=== PATIENT | male | born 1955 | race Caucasian/White ===

== ENCOUNTER 2016-12-19 15:40 | Emergency (ER) | payer OTHER ==
[~2016-12-19] VITALS: Ht 172.7 cm; Wt 127.0 kg
[2016-12-19] MEDS ORDERED: BROMFED DM COU118 ML PO (16:12)
[2016-12-19] MEDS ORDERED: FLONASE 50 MCG16 GM (16:12)
--- NOTE | 2016-12-19 16:12 | Urgent Treatment Center Report ---
History of Present Issue Date/Time Seen by Provider 12/19/16 1105 Visit Reason Pt arrived:Walked Presenting Problem:PT ADVISES SHE WAS DX WITH BRONCHITIS 2 WEEKS AGO AT [facility] AND HAS SINCE, NOT FELT ANY BETTER Location if Accident: Onset of symptoms date/time:/ or onset unknown for:MEDICAL HX UNKNOWN Have you (or family members/close friends) recently traveled outside the [place]? N If Yes, where/when: Have you had exposure to infectious disease within the past month? TB? Other? Specify: Here w/ significant other c/o cough. Started yesterday after mowing. "First sneezing, then runny nose and soon after, this cough". Productive at times, clear sputum and clear nasal drainage. Denies fevers, aches, chills. No wheezing. Occasionally feels SOA "when I cough over and over and over". Robitussin has helped "some" but hasn't taken or tried anything else. No known sick contacts. Seen for similiar symptoms 2 weeks ago at [facility]. Dx bronchitis at that time. Treated w/ tessalon perles, steroid injection, inhaler and thinks steroid pills. Seemed to feel better until yesterday. Source patient, family Exam Limitations no limitations ALLERGIES Coded Allergies: No Known Allergies (12/19/16) History Medical History General CAD? No Angina: No [place]: No Hypertension? No Hyperlipidemia? No CHF? No DVT? No PE? No COPD? No Asthma? No Anemia? No GERD? No Gastric ulcers? No GI Bleed? No Hernia? No Thyroid Problems? No Hypothyroidism? No CVA? No Seizures? No Diabetes? No Renal Insuffiency? No UTI? No Stones? No BPH? No GB Disease: No Nephritic Syndrome? No Asplenia? No Hepatitis? No Sickle Cell Disease? No Arthritis? No Migraines? No Cataracts? No Glaucoma? No MRSA? No HIV? No TB? No Anxiety? No Depression? No Cancer? No More? No Immunization HX DT/Tetanus Unknown Surgical Hx Previous Surgery?Y GALLBLADDER APPENDECTOMY Social History Smoking Hx Smoker: Never Smoker Tobacco: No Alcohol Alcohol: No Review of Systems All Other Systems Reviewed and Negative Constitutional see HPI Eyes see HPI, denies pain, denies vision change ENT see HPI, nose congestion. denies: ear pain, throat pain, throat swelling. Respiratory see HPI Cardiovascular denies chest pain Gastrointestinal denies no symptoms reported Psychiatric/Neurological denies headache Physical Exam Vital Signs Vital Signs Date Time Temp Pulse Resp B/P Pulse O2 O2 Flow FiO2 Ox Delivery Rate 12/19 1556 98.1 89 20 151/95 98 General Appearance no apparent distress (except frequent cough), obese Eye Exam - bilateral eye normal exam (x/ watery) Ear, Nose, Throat hearing grossly normal, normal pharynx (x/ clear PND and cobblestoning), nasal congestion, clear rhinorrhea, normal elle EACs w/ pearly cortés TMs, fluid present, TMs flat Neck non-tender, supple Respiratory Status Yes: trachea midline, chest symmetrical, non productive cough. No: respiratory distress, use of accessory muscles, pain on inspiration, pain on expiration. Lung Sounds anterior: lungs clear. posterior: lungs clear. bilateral: lungs clear. Cardiovascular regular rate/rhythm, no peripheral edema, no murmur Neurologic alert Skin normal color, warm/dry Lymphatic no adenopathy (anterior cervical) Medical Decision Making LABS/Meds/Orders Pt receiving controlled substance in ED? No Departure Departure Time of Disposition 1608 Disposition DC Home or Self Care(routine) Clinical Impression Primary Impression: Allergic rhinitis Qualifiers: Allergic rhinitis trigger: unspecified Allergic rhinitis seasonality: seasonal Qualified Code: J30.2 - Other seasonal allergic rhinitis Secondary Impressions: Cough Condition STABLE Referrals NO REFERRAL Primary Care provider, [facility], [facility] or ER IMMEDIATELY for new or worsening symptoms OR no noticeable improvement over the next 48-72 hours. 911 for difficulty breathing or swallowing. Patient Instructions DI for Allergic Rhinitis, DI for Cough -- Adult Additional Instructions * Monitor Temp. Tylenol every 4 hours as needed and/or ibuprofen every 6 hours as needed (as long as your primary care doctor has told you that it is ok to take both) for fever/aches/pain. ER if fever no less than 101 despite tylenol and ibuprofen * Encourage fluids, water, gatorade, powerade, pedialyte if /toddler/child * sleep elevated * humidifier/vaporizer * flonase 2 sprays each nostril daily but may take 2-3 days to notice improvement with it. Once symptoms resolve, back down to 1 spray each nostril x 1 week and if still no symptoms, you can try stopping flonase. If symptoms return, resume at 1 spray each nostril daily. * Bromfed may cause drowsiness. Know how it effects you (or your child) before driving, caring for small children, or sending your child to school. No claritin necessary while taking bromfed 3-4x/day but once you back off cough medication, start daily claritin Discharge Counseling Counseled pt/family regarding diagnosis, medications/RX, home care, follow up needs Prescriptions Current Visit Scripts Fluticasone Propionate (Flonase 50 Mcg Nasal [place]) 2 SPRAY NA DAILY #1 BOT D-METHORPHAN HB/P-EPD HCL/BPM (Bromfed Dm Cough Syrup) 10 ML PO QIDP PRN cough #240 ML at 1614
--- NOTE | 2016-12-19 16:12 | Urgent Treatment Center Report ---
History of Present Issue Date/Time Seen by Provider 12/19/16 6085 Visit Reason Pt arrived:Walked Presenting Problem:PT ADVISES SHE WAS DX WITH BRONCHITIS 2 WEEKS AGO AT [facility] AND HAS SINCE, NOT FELT ANY BETTER Location if Accident: Onset of symptoms date/time:/ or onset unknown for:MEDICAL HX UNKNOWN Have you (or family members/close friends) recently traveled outside the [place]? N If Yes, where/when: Have you had exposure to infectious disease within the past month? TB? Other? Specify: Here w/ significant other c/o cough. Started yesterday after mowing. "First sneezing, then runny nose and soon after, this cough". Productive at times, clear sputum and clear nasal drainage. Denies fevers, aches, chills. No wheezing. Occasionally feels SOA "when I cough over and over and over". Robitussin has helped "some" but hasn't taken or tried anything else. No known sick contacts. Seen for similiar symptoms 2 weeks ago at [facility]. Dx bronchitis at that time. Treated w/ tessalon perles, steroid injection, inhaler and thinks steroid pills. Seemed to feel better until yesterday. Source patient, family Exam Limitations no limitations ALLERGIES Coded Allergies: No Known Allergies (12/19/16) History Medical History General CAD? No Angina: No [place]: No Hypertension? No Hyperlipidemia? No CHF? No DVT? No PE? No COPD? No Asthma? No Anemia? No GERD? No Gastric ulcers? No GI Bleed? No Hernia? No Thyroid Problems? No Hypothyroidism? No CVA? No Seizures? No Diabetes? No Renal Insuffiency? No UTI? No Stones? No BPH? No GB Disease: No Nephritic Syndrome? No Asplenia? No Hepatitis? No Sickle Cell Disease? No Arthritis? No Migraines? No Cataracts? No Glaucoma? No MRSA? No HIV? No TB? No Anxiety? No Depression? No Cancer? No More? No Immunization HX DT/Tetanus Unknown Surgical Hx Previous Surgery?Y GALLBLADDER APPENDECTOMY Social History Smoking Hx Smoker: Never Smoker Tobacco: No Alcohol Alcohol: No Review of Systems All Other Systems Reviewed and Negative Constitutional see HPI Eyes see HPI, denies pain, denies vision change ENT see HPI, nose congestion. denies: ear pain, throat pain, throat swelling. Respiratory see HPI Cardiovascular denies chest pain Gastrointestinal denies no symptoms reported Psychiatric/Neurological denies headache Physical Exam Vital Signs Vital Signs Date Time Temp Pulse Resp B/P Pulse O2 O2 Flow FiO2 Ox Delivery Rate 12/19 1556 98.1 89 20 151/95 98 General Appearance no apparent distress (except frequent cough), obese Eye Exam - bilateral eye normal exam (x/ watery) Ear, Nose, Throat hearing grossly normal, normal pharynx (x/ clear PND and cobblestoning), nasal congestion, clear rhinorrhea, normal elle EACs w/ pearly cortés TMs, fluid present, TMs flat Neck non-tender, supple Respiratory Status Yes: trachea midline, chest symmetrical, non productive cough. No: respiratory distress, use of accessory muscles, pain on inspiration, pain on expiration. Lung Sounds anterior: lungs clear. posterior: lungs clear. bilateral: lungs clear. Cardiovascular regular rate/rhythm, no peripheral edema, no murmur Neurologic alert Skin normal color, warm/dry Lymphatic no adenopathy (anterior cervical) Medical Decision Making LABS/Meds/Orders Pt receiving controlled substance in ED? No Departure Departure Time of Disposition 1608 Disposition DC Home or Self Care(routine) Clinical Impression Primary Impression: Allergic rhinitis Qualifiers: Allergic rhinitis trigger: unspecified Allergic rhinitis seasonality: seasonal Qualified Code: J30.2 - Other seasonal allergic rhinitis Secondary Impressions: Cough Condition STABLE Referrals NO REFERRAL Primary Care provider, [facility], [facility] or ER IMMEDIATELY for new or worsening symptoms OR no noticeable improvement over the next 48-72 hours. 911 for difficulty breathing or swallowing. Patient Instructions DI for Allergic Rhinitis, DI for Cough -- Adult Additional Instructions * Monitor Temp. Tylenol every 4 hours as needed and/or ibuprofen every 6 hours as needed (as long as your primary care doctor has told you that it is ok to take both) for fever/aches/pain. ER if fever no less than 101 despite tylenol and ibuprofen * Encourage fluids, water, gatorade, powerade, pedialyte if /toddler/child * sleep elevated * humidifier/vaporizer * flonase 2 sprays each nostril daily but may take 2-3 days to notice improvement with it. Once symptoms resolve, back down to 1 spray each nostril x 1 week and if still no symptoms, you can try stopping flonase. If symptoms return, resume at 1 spray each nostril daily. * Bromfed may cause drowsiness. Know how it effects you (or your child) before driving, caring for small children, or sending your child to school. No claritin necessary while taking bromfed 3-4x/day but once you back off cough medication, start daily claritin Discharge Counseling Counseled pt/family regarding diagnosis, medications/RX, home care, follow up needs Prescriptions Current Visit Scripts Fluticasone Propionate (Flonase 50 Mcg Nasal [place]) 2 SPRAY NA DAILY #1 BOT D-METHORPHAN HB/P-EPD HCL/BPM (Bromfed Dm Cough Syrup) 10 ML PO QIDP PRN cough #240 ML at 1614
[2016-12-19 16:13] VITALS: BP 151/95
[2016-12-20] MEDS ORDERED: VENTOLIN H0.09 MG/Ac IH (04:29)
[2016-12-20] MEDS ORDERED: KEFLEX 500MG.500 MG PO (07:03)
[2016-12-20] MEDS ORDERED: ZITHROMAX Z PA250 MG PO (07:03)
== END 2016-12-19 16:15 | disposition home or self-care (01) ==
LOC: UTC 15:40
DX: J30.2 Other seasonal allergic rhinitis (principal); R05 Cough

== ENCOUNTER 2016-12-20 04:14 | Emergency (ER) | payer OTHER ==
[~2016-12-20] VITALS: Ht 172.7 cm; Wt 127.0 kg
[~2016-12-20 04:14] MED LIST: BROMFED DM COU118 ML PO; FLONASE 50 MCG16 GM
[2016-12-20] MEDS ORDERED: VENTOLIN H0.09 MG/Ac IH (04:29)
[2016-12-20 05:02] LABS: HEMOGLOBIN 14.1 g/dL (14.1-18.0)
[2016-12-20 05:03] LABS: LYMPH % 11.3 % (10-50)
[2016-12-20 05:04] LABS: LYMPH # 1.2 K/mm3 (0.7-4.5)
[2016-12-20 05:18] LABS: BUN 16 mg/dL (7-18); GFR (ESTIMATED) 76 ML/MIN (>60)
--- NOTE | 2016-12-20 06:05 | RADIOLOGY REPORT PS360 ---
CHEST(2 VIEWS-NOT PORTABLE) HISTORY: cough ORDERING PHYSICIAN: Gato Jarvis MD PATIENT AGE: 61 years COMPARISON: None available FINDINGS: The cardiomediastinal silhouette and pulmonary vascularity are within normal limits. Slight increased markings right middle lobe suspicious for atelectasis or infiltrate versus vascular crowding. The remaining lungs are clear... No acute bony abnormalities. IMPRESSION: Right middle lobe infiltrate
--- NOTE | 2016-12-20 06:25 | Emergency Room Report ---
History of Present Illness Time Seen by 0416 Presenting Problem in Triage Pt arrived:Walked Presenting Problem:PT C/O CHEST TIGHTNESS AND COUGH X 3 DAYS. PT WAS SEEN YESTERDAY AT [facility] AND WAS TOLD HE "HAD ALLERGIES" AND TWO WEEKS PRIOR PT WAS SEEN AT CLINIC AT [facility], SENT HOME WITH PRESCRIPTIONS FOR BRONCHITIS. PT RPTS CLEAR SPUTUM. PT RPTS HE DID COMPLETE HIS MEDS FOR BRONCHITIS. 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 N Clinical Suspician of Infection? N Mental Status: 1 - Regular (Normal Baseline) Sepsis Risk:Low Sepsis Risk Have you (or family members/close friends) recently traveled outside the [place]? N If Yes, where/when: Have you had exposure to infectious disease within the past month? N TB? Other? Specify: Source patient, RN notes reviewed, family, old records Exam Limitations no limitations Comment occ prod cough with recent visits to [facility] - Cardiac Chest Pain Chest pain indicative of cardiac No Timing/Duration this morning Severity moderate ALLERGIES Coded Allergies: No Known Allergies (12/19/16) Home Medications Active Scripts Fluticasone Propionate (Flonase 50 Mcg Nasal [place]) 2 SPRAY NA DAILY #1 BOT Prov: 12/19/16 D-METHORPHAN HB/P-EPD HCL/BPM (Bromfed Dm Cough Syrup) 10 ML PO QIDP PRN cough #240 ML Prov: 12/19/16 Reported Medications Albuterol Sulfate (Ventolin Hfa) 0.09 MG IH PRN PRN ASTHMA #18 History Medical History General CAD? No Angina: No [place]: No Hypertension? No Hyperlipidemia? No CHF? No DVT? No PE? No COPD? No Asthma? No Anemia? No GERD? No Gastric ulcers? No GI Bleed? No Hernia? No Thyroid Problems? No Hypothyroidism? No CVA? No Seizures? No Diabetes? No Renal Insuffiency? No End Stage Renal Disease? No UTI? No Stones? No BPH? No GB Disease: No Nephritic Syndrome? No Asplenia? No Hepatitis? No Sickle Cell Disease? No Arthritis? No Migraines? No Cataracts? No Glaucoma? No MRSA? No HIV? No TB? No Anxiety? No Depression? No Cancer? No More? No Immunization Hx DT/Tetanus Unknown Surgical Hx Previous Surgery?Y GALLBLADDER APPENDECTOMY Social History Smoking Hx Smoker: Former Smoker Tobacco: No Are you/the child exposed to second-hand smoke: No Alcohol Alcohol: No Drugs none Review of Systems All Other Systems Reviewed and Negative Constitutional denies fever Eyes denies drainage ENT denies: ear discharge, epistaxis, throat pain. Respiratory see HPI, cough, shortness of breath, wheezing Cardiovascular denies chest pain, denies palpitations, denies syncope Gastrointestinal denies abdominal pain, denies diarrhea, denies vomiting Genitourinary denies: dysuria, frequency, hesitancy, hematuria. Musculoskeletal denies back pain, denies joint pain, denies joint swelling, denies neck pain Skin denies rash Psychiatric/Neurological denies headache, denies seizure Physical Exam Vital Signs Vital Signs Date Time Temp Pulse Resp B/P Pulse O2 O2 Flow FiO2 Ox Delivery Rate 12/20 0636 82 20 164/100 98 12/20 0600 97.7 78 18 168/88 94 12/20 0530 97.7 81 20 174/87 94 12/20 0432 20 94 12/20 0421 97.7 89 20 162/95 94 - WBC >12,000 or <4,000 or 10% bands? 2 or more SIRS Criteria Met? B/P:164/100 MAP:117 Creatinine >2.0? UA output<0.5ml/kg/hr for 2 hrs? Platelet count >100,000? Lactate >2.0mmol/1? INR >1.2 or PTT > than 60 sec? Evidence of Organ Dysfunction? Provider documented clinical suspician of infection? N Sepsis Criteria Count: 1 Sepsis Risk: Low Sepsis Risk General Appearance no apparent distress Eye Exam - bilateral eye PERRL, bilateral eye EOMI Ear, Nose, Throat normal ENT inspection Neck supple Respiratory Status No: respiratory distress. Lung Sounds bilateral: rhonchi. 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 No Results/Orders Laboratory Tests 12/20/16 0440: Lactic Acid 1.3 12/20/16 0440: Sodium 140, Potassium 3.7, Chloride 105, Carbon Dioxide 27, BUN 16, Creatinine 1.0, Estimated Creat Clear 141, Estimated GFR (MDRD) 76, Glucose 106, Calcium 8.4 L, Total Bilirubin 1.0, AST 18, ALT 36, Alkaline Phosphatase 114, Creatine Kinase 157, CK-MB (CK-2) Rel Index 1.3, CK and CKMB Interp 2.0, Troponin I < 0.02, B-Natriuretic Peptide 9, Total Protein 7.8, Albumin 3.8, Globulin 4.0 H, Albumin/Globulin Ratio 1.0 L, WBC 10.5, RBC 4.86, Hgb 14.1, Hct 42.0, MCV 86.4, RDW 15.7, Plt Count 276, Gran % 84.7 H, Gran # 8.9 H, Lymphocytes % 11.3, Monocytes % 4.0, Lymphocytes # 1.2, Monocytes # 0.4, PUBS MCHC 33.6, MCH 29.0 Current Medication Orders Sig/Angi Start time Last Medication Dose Route Stop Time Status Admin Albuterol 2 PUFFS ONCE ONE 12/20 0700 DC IH 12/20 0701 Miscellaneous 1 UNIT ONCE ONE 12/20 0700 DC XX 12/20 0701 Ceftriaxone Sodium 1 GM ONCE ONE 12/20 629 DC 12/20 Sodium Chloride 50 ML IV 12/20 0659 0633 Ceftriaxone Sodium 0 .STK-MED ONE 12/20 629 DC IV Furosemide 40 MG ONCE ONE 12/20 629 DC 12/20 IV 12/20 0631 0633 Furosemide 0 .STK-MED ONE 12/20 629 DC .ROUTE Sodium Chloride 100 ML .STK-MED ONE 12/20 629 DC IV Ceftriaxone Sodium 0 .STK-MED ONE 12/20 628 DC .ROUTE Albuterol/Ipratropium 3 ML ONCE ONE 12/20 0430 DC 12/20 INH 12/20 430 0430 Sodium Chloride 10 ML PRN PRN 12/20 429 AC IV 12/21 0423 Albuterol/Ipratropium 0 .STK-MED ONE 12/20 425 DC INH Orders Procedure Date/time Status RT REQUEST ALBUTEROL INHALER 12/20 06 Active 12 LEAD EKG-AUGUSTUS (INITIAL) 12/21 427 Active ELECTROCARDIOGRAM REQUEST 12/21 423 Active RT REQUEST DUONEB 12/21 423 Active IV SALINE LOCK 12/21 423 Active CULTURE, SPUTUM 12/21 423 Active CULTURE, BLOOD 12/21 423 Active LACTIC ACID 12/21 423 Complete COMPLETE METABOLIC PANEL 12/21 423 Complete CBC WITH AUTO DIFF 12/21 423 Complete CARDIAC ENZYMES 12/21 423 Complete BRAIN NATRIURETIC PEPTIDE 12/21 423 Complete 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 ST/Twave chgs XRAY/CT/US XRAY/CT/US XRAY chest XR interpretation by reviewed by me Xray Results abnormal Departure Departure Time of Disposition 701 Disposition DC Home or Self Care(routine) Clinical Impression Primary Impression: CAP (community acquired pneumonia) Condition STABLE Patient Instructions DI for Cough -- Adult Additional Instructions fluids and see pcp for follow up and use meds Discharge Counseling Counseled pt/family regarding diagnosis, test results, medications/RX, follow up needs Prescriptions Current Visit Scripts CEPHALEXIN (Keflex 500MG Capsule) 500 MG PO Q8H #21 CAP Azithromycin (Zithromycin (Z-CRISTIAN) 250MG Tab) 250 MG PO DAILY #6 TAB TAKE TWO (2) TABLETS ON DAY 1, THEN ONE (1) TABLET DAY #2 THRU #5 ED Critical Care Critical Care No at 0704
--- NOTE | 2016-12-20 06:25 | Emergency Room Report ---
History of Present Illness Time Seen by [id number] Presenting Problem in Triage Pt arrived:Walked Presenting Problem:PT C/O CHEST TIGHTNESS AND COUGH X 3 DAYS. PT WAS SEEN YESTERDAY AT [facility] AND WAS TOLD HE "HAD ALLERGIES" AND TWO WEEKS PRIOR PT WAS SEEN AT CLINIC AT [facility], SENT HOME WITH PRESCRIPTIONS FOR BRONCHITIS. PT RPTS CLEAR SPUTUM. PT RPTS HE DID COMPLETE HIS MEDS FOR BRONCHITIS. Onset of symptoms date/time:/ or onset unknown for:MEDICAL HX UNKNOWN Treatment Prior to Arrival: FLUTICASONE NASAL SPRAY AND BROMED DM COUGH SYRUP PER [facility] ASSISTANT LIBRARIAN Provided by:PHYSICIAN Sepsis Risk Assessment: Temp: 97.7 B/P: 174/87 MAP: 117 Pulse: 81 Resp: 20 Recent fever? N Clinical Suspician of Infection? N Mental Status: 1 - Regular (Normal Baseline) Sepsis Risk:Low Sepsis Risk Have you (or family members/close friends) recently traveled outside the [place]? N If Yes, where/when: Have you had exposure to infectious disease within the past month? N TB? Other? Specify: Source patient, RN notes reviewed, family, old records Exam Limitations no limitations Comment occ prod cough with recent visits to [facility] - Cardiac Chest Pain Chest pain indicative of cardiac No Timing/Duration this morning Severity moderate ALLERGIES Coded Allergies: No Known Allergies (12/19/16) Home Medications Active Scripts Fluticasone Propionate (Flonase 50 Mcg Nasal [place]) 2 SPRAY NA DAILY #1 BOT Prov: 12/19/16 D-METHORPHAN HB/P-EPD HCL/BPM (Bromfed Dm Cough Syrup) 10 ML PO QIDP PRN cough #240 ML Prov: 12/19/16 Reported Medications Albuterol Sulfate (Ventolin Hfa) 0.09 MG IH PRN PRN ASTHMA #18 History Medical History General CAD? No Angina: No [place]: No Hypertension? No Hyperlipidemia? No CHF? No DVT? No PE? No COPD? No Asthma? No Anemia? No GERD? No Gastric ulcers? No GI Bleed? No Hernia? No Thyroid Problems? No Hypothyroidism? No CVA? No Seizures? No Diabetes? No Renal Insuffiency? No End Stage Renal Disease? No UTI? No Stones? No BPH? No GB Disease: No Nephritic Syndrome? No Asplenia? No Hepatitis? No Sickle Cell Disease? No Arthritis? No Migraines? No Cataracts? No Glaucoma? No MRSA? No HIV? No TB? No Anxiety? No Depression? No Cancer? No More? No Immunization Hx DT/Tetanus Unknown Surgical Hx Previous Surgery?Y GALLBLADDER APPENDECTOMY Social History Smoking Hx Smoker: Former Smoker Tobacco: No Are you/the child exposed to second-hand smoke: No Alcohol Alcohol: No Drugs none Review of Systems All Other Systems Reviewed and Negative Constitutional denies fever Eyes denies drainage ENT denies: ear discharge, epistaxis, throat pain. Respiratory see HPI, cough, shortness of breath, wheezing Cardiovascular denies chest pain, denies palpitations, denies syncope Gastrointestinal denies abdominal pain, denies diarrhea, denies vomiting Genitourinary denies: dysuria, frequency, hesitancy, hematuria. Musculoskeletal denies back pain, denies joint pain, denies joint swelling, denies neck pain Skin denies rash Psychiatric/Neurological denies headache, denies seizure Physical Exam Vital Signs Vital Signs Date Time Temp Pulse Resp B/P Pulse O2 O2 Flow FiO2 Ox Delivery Rate 12/20 0636 82 20 164/100 98 12/20 0600 97.7 78 18 168/88 94 12/20 0530 97.7 81 20 174/87 94 12/20 0432 20 94 12/20 0421 97.7 89 20 162/95 94 - WBC >12,000 or <4,000 or 10% bands? 2 or more SIRS Criteria Met? B/P:164/100 MAP:117 Creatinine >2.0? UA output<0.5ml/kg/hr for 2 hrs? Platelet count >100,000? Lactate >2.0mmol/1? INR >1.2 or PTT > than 60 sec? Evidence of Organ Dysfunction? Provider documented clinical suspician of infection? N Sepsis Criteria Count: 1 Sepsis Risk: Low Sepsis Risk General Appearance no apparent distress Eye Exam - bilateral eye PERRL, bilateral eye EOMI Ear, Nose, Throat normal ENT inspection Neck supple Respiratory Status No: respiratory distress. Lung Sounds bilateral: rhonchi. Cardiovascular regular rate/rhythm, no gallop, no JVD, no murmur, no rub Peripheral Pulses Pulses normal Yes Gastrointestinal soft Extremities no calf tenderness, pedal edema Strength 4 Upper Ext (L), 4 Upper Ext (R), 4 Lower Ext (L), 4 Lower Ext (R) Neurologic alert, front maker II-XII nml as tested Reflexes Reflexes normal No Mental status normal mood/affect Skin intact Medical Decision Making LABS/Meds/Orders Pt receiving controlled substance in ED? No Results/Orders Laboratory Tests 12/20/16 0440: Lactic Acid 1.3 12/20/16 0440: Sodium 140, Potassium 3.7, Chloride 105, Carbon Dioxide 27, BUN 16, Creatinine 1.0, Estimated Creat Clear 141, Estimated GFR (MDRD) 76, Glucose 106, Calcium 8.4 L, Total Bilirubin 1.0, AST 18, ALT 36, Alkaline Phosphatase 114, Creatine Kinase 157, CK-MB (CK-2) Rel Index 1.3, CK and CKMB Interp 2.0, Troponin I < 0.02, B-Natriuretic Peptide 9, Total Protein 7.8, Albumin 3.8, Globulin 4.0 H, Albumin/Globulin Ratio 1.0 L, WBC 10.5, RBC 4.86, Hgb 14.1, Hct 42.0, MCV 86.4, RDW 15.7, Plt Count 276, Gran % 84.7 H, Gran # 8.9 H, Lymphocytes % 11.3, Monocytes % 4.0, Lymphocytes # 1.2, Monocytes # 0.4, PUBS MCHC 33.6, MCH 29.0 Current Medication Orders Sig/Angi Start time Last Medication Dose Route Stop Time Status Admin Albuterol 2 PUFFS ONCE ONE 12/20 0700 DC IH 12/20 0701 Miscellaneous 1 UNIT ONCE ONE 12/20 0700 DC XX 12/20 0701 Ceftriaxone Sodium 1 GM ONCE ONE 12/20 629 DC 12/20 Sodium Chloride 50 ML IV 12/20 0659 0633 Ceftriaxone Sodium 0 .STK-MED ONE 12/20 629 DC IV Furosemide 40 MG ONCE ONE 12/20 629 DC 12/20 IV 12/20 0631 0633 Furosemide 0 .STK-MED ONE 12/20 629 DC .ROUTE Sodium Chloride 100 ML .STK-MED ONE 12/20 629 DC IV Ceftriaxone Sodium 0 .STK-MED ONE 12/20 628 DC .ROUTE Albuterol/Ipratropium 3 ML ONCE ONE 12/20 0430 DC 12/20 INH 12/20 430 0430 Sodium Chloride 10 ML PRN PRN 12/20 429 AC IV 12/21 0423 Albuterol/Ipratropium 0 .STK-MED ONE 12/20 425 DC INH Orders Procedure Date/time Status RT REQUEST ALBUTEROL INHALER 12/20 06 Active 12 LEAD EKG-AUGUSTUS (INITIAL) 12/21 427 Active ELECTROCARDIOGRAM REQUEST 12/21 423 Active RT REQUEST DUONEB 12/21 423 Active IV SALINE LOCK 12/21 423 Active CULTURE, SPUTUM 12/21 423 Active CULTURE, BLOOD 12/21 423 Active LACTIC ACID 12/21 423 Complete COMPLETE METABOLIC PANEL 12/21 423 Complete CBC WITH AUTO DIFF 12/21 423 Complete CARDIAC ENZYMES 12/21 423 Complete BRAIN NATRIURETIC PEPTIDE 12/21 423 Complete 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 ST/Twave chgs XRAY/CT/US XRAY/CT/US XRAY chest XR interpretation by reviewed by me Xray Results abnormal Departure Departure Time of Disposition 701 Disposition DC Home or Self Care(routine) Clinical Impression Primary Impression: CAP (community acquired pneumonia) Condition STABLE Patient Instructions DI for Cough -- Adult Additional Instructions fluids and see pcp for follow up and use meds Discharge Counseling Counseled pt/family regarding diagnosis, test results, medications/RX, follow up needs Prescriptions Current Visit Scripts CEPHALEXIN (Keflex 500MG Capsule) 500 MG PO Q8H #21 CAP Azithromycin (Zithromycin (Z-CRISTIAN) 250MG Tab) 250 MG PO DAILY #6 TAB TAKE TWO (2) TABLETS ON DAY 1, THEN ONE (1) TABLET DAY #2 THRU #5 ED [place] [address]704
[2016-12-20] MEDS ORDERED: KEFLEX 500MG.500 MG PO (07:03)
[2016-12-20] MEDS ORDERED: ZITHROMAX Z PA250 MG PO (07:03)
[2016-12-20 07:22] VITALS: BP 171/90
== END 2016-12-20 07:23 | disposition home or self-care (01) ==
LOC: ER 04:14
PROVIDERS: Emergency Medicine
DX: J18.9 Pneumonia, unspecified organism (principal); Z87.891 Personal history of nicotine dependence